=== PATIENT | male | born 1990 | race Caucasian/White ===

== ENCOUNTER → 2024-01-24 | Outpatient (CLI) | payer SELFPAY ==
[2024-01-24 14:52] LABS: Corrected WBC 4.5 K/mm3 (4.4-11.0); Platelet Count 160 K/mm3 (150-450)
[2024-01-24 14:53] LABS: ERROR FUNCTION FLAG NO; POSITIVE COUNT NO; POSITIVE DIFFERENTIAL NO; POSITIVE MORPHOLOGY NO
== END | disposition home or self-care (01) ==
LOC: LAB 14:45
PROVIDERS: Referring Provider Podiatrist
DX: D64.9 Anemia, unspecified (principal)
CPT/HCPCS: 85025